=== PATIENT | male | born 1975 ===

== ENCOUNTER 2025-01-27 14:59 | Inpatient (IN) | payer BC, SELFPAY ==
[~2025-01-27 14:59] MED LIST: Iopamidol 370 76% 100 ML VIAL ONE
[2025-01-27 16:40] LABS: #Basophils 0.03 10x3/uL (0.0-0.2); #Eosinophils Less than 0.03 10x3/uL (0.0-0.7); #Monocytes 0.58 10x3/uL (0.11-0.59); #Neutrophils 10.60 10x3/uL (1.40-6.50); %Basophils 0.2 % (0.0-1.0); %Eosinophils 0.0 % (0.0-10.0); %Lymphocytes 9.1 % (21.0-51.0); %Monocytes 4.7 % (0.0-10.0); %Neutrophils 85.8 % (42.0-75.0); Hematocrit 42.0 % (42.0-52.0); Hemoglobin 15.4 g/dL (14.0-18.0); Mean Corpuscular Hemoglobin 33.2 pg (27.0-31.0); Mean Corpuscular Volume 90.5 fL (78.0-98.0); Platelet Count 379 10x3/uL (130-400); Red Blood Cell (RBC) Count 4.64 mill/uL (4.70-6.10); White Blood Cell (WBC) Count 12.37 10x3/uL (4.8-10.8)
[2025-01-27 17:00] LABS: ALT (SGPT) 43 U/L (Less than 45); AST (SGOT) 144 U/L (11-34); Albumin 3.8 g/dL (3.1-4.5); Alkaline Phosphatase 109 U/L (40-110); Anion Gap 19 mmol/L (10-20); BUN (Urea Nitrogen) 4 mg/dL (8.9-20.6); Bilirubin, Total 0.7 mg/dL (0.3-1.2); Calc. Creatinine Clearance 0 mL/min (70-130); Calcium 8.8 mg/dL (7.8-10.44); Carbon Dioxide 26 mmol/L (22-29); Chloride 97 mmol/L (98-107); Globulin 3.6 g/dL (2.4-3.5); Glucose 126 mg/dL (70-105); Lipase 6 U/L (8-78); Magnesium 1.7 mg/dL (1.6-2.6); Potassium 3.8 mmol/L (3.5-5.1); Sodium 138 mmol/L (136-145)
[2025-01-27 17:15] LABS: Troponin I 5.322 ng/mL (< 0.028)
[2025-01-27] MEDS ORDERED: Enoxaparin 100 MG (1 mL) SYRINGE ONE (18:36)
[2025-01-27] MEDS ORDERED: Nitroglycerin 2% Ointment 1 INCH/1 GM Packet ONE (19:07)
[2025-01-27] MEDS ORDERED: Ondansetron PF 4 MG/2 ML Vial IVP PRN (19:35)
[2025-01-27 19:40] LABS: Troponin I 10.334 ng/mL (< 0.028)
[2025-01-27] MEDS ORDERED: Lidocaine 1% (PF) 30 ML VIAL ONE (20:10)
[2025-01-27] MEDS ORDERED: Nitroglycerin 50 MG/250 ML BOT 250 ML ONE (20:10)
[2025-01-27] MEDS ORDERED: Heparin 10,000 UNITS/ 10 ML VIAL ONE (20:10)
[2025-01-27] MEDS ORDERED: Adenosine 6 mg (2 mL) VIAL ONE (20:54)
[2025-01-27] MEDS ORDERED: TICAGRELOR 90 MG TABLET ONE (20:59)
[2025-01-27] MEDS ORDERED: Ondansetron PF 4 MG/2 ML Vial ONE (21:00)
[2025-01-27] MEDS ORDERED: NOREPINEPHRINE 8 MG/250 ML-D5W 250 ML ONE (21:01)
[2025-01-27] MEDS ORDERED: Milk Of Magnesia 30 ML UDCUP PO PRN (21:40)
[2025-01-27] MEDS ORDERED: Acetaminophen/Codeine 30-300mg Tablet PO PRN (21:40)
[2025-01-27] MEDS ORDERED: Nitroglycerin 0.4 MG TAB (25 Tab Bottle) SL PRN (21:40)
[2025-01-27] MEDS ORDERED: Mag-Al 1200 mg/1200 mg/30 ML UDCUP PO PRN (21:40)
[2025-01-27] MEDS ORDERED: NOREPINEPHRINE 8 MG/250 ML-D5W 250 ML IVPB SCH (22:00)
[2025-01-27 22:25] VITALS: BMI 24.9
[2025-01-27 23:32] LABS: Acetaminophen Less than 10 mcg/mL (Less than 10); Salicylate Less than 8.0 mg/dL (Less than 8.0)
[2025-01-27] MEDS: Acetaminophen 325 MG TAB PO PRN (23:51)
[2025-01-27] MEDS: Pantoprazole 40 MG VIAL IVP SCH (23:56)
[2025-01-28 00:23] LABS: Troponin I 353.753 ng/mL (< 0.028)
[2025-01-28] MEDS ORDERED: Nitroglycerin 2% Ointment 1 INCH/1 GM Packet TOP SCH (03:00)
[2025-01-28 04:53] LABS: #Basophils 0.03 10x3/uL (0.0-0.2); #Eosinophils Less than 0.03 10x3/uL (0.0-0.7); #Monocytes 1.09 10x3/uL (0.11-0.59); #Neutrophils 9.16 10x3/uL (1.40-6.50); %Basophils 0.2 % (0.0-1.0); %Eosinophils 0.0 % (0.0-10.0); %Lymphocytes 15.9 % (21.0-51.0); %Monocytes 8.9 % (0.0-10.0); %Neutrophils 74.7 % (42.0-75.0); Hematocrit 38.3 % (42.0-52.0); Hemoglobin 13.7 g/dL (14.0-18.0); Mean Corpuscular Hemoglobin 33.6 pg (27.0-31.0); Mean Corpuscular Volume 93.9 fL (78.0-98.0); Platelet Count 279 10x3/uL (130-400); Red Blood Cell (RBC) Count 4.08 mill/uL (4.70-6.10); White Blood Cell (WBC) Count 12.27 10x3/uL (4.8-10.8)
[2025-01-28 05:23] LABS: ALT (SGPT) 101 U/L (Less than 45); AST (SGOT) 654 U/L (11-34); Albumin 3.1 g/dL (3.1-4.5); Alkaline Phosphatase 87 U/L (40-110); Anion Gap 16 mmol/L (10-20); BUN (Urea Nitrogen) 6 mg/dL (8.9-20.6); Bilirubin, Total 0.9 mg/dL (0.3-1.2); Calc. Creatinine Clearance 112 mL/min (70-130); Calcium 8.2 mg/dL (7.8-10.44); Carbon Dioxide 21 mmol/L (22-29); Cardiac Risk 6.0 (Less than 4.5); Chloride 103 mmol/L (98-107); Cholesterol 174 mg/dl (< 200 Desired); Globulin 3.0 g/dL (2.4-3.5); Glucose 103 mg/dL (70-105); HDL Cholesterol 29 mg/dL (>60 Neg Risk); LDL Cholesterol, Calculated 106 mg/dL; Potassium 3.6 mmol/L (3.5-5.1); Sodium 136 mmol/L (136-145); Triglycerides 195 mg/dL (Less than 150)
[2025-01-28 07:10] LABS: Troponin I 200.511 ng/mL (< 0.028)
[2025-01-28] MEDS: TICAGRELOR 90 MG TABLET PO SCH (09:01)
[2025-01-28] MEDS: Pantoprazole 40 MG VIAL IVP SCH (09:02)
[2025-01-28] MEDS: Aspirin Chewable 81 MG TAB PO SCH (09:02)
[2025-01-28 09:11] LABS: Critical Call Chem Troponin I RESULT DECREASING; Troponin I 141.537 ng/mL (< 0.028)
[2025-01-28 09:34] LABS: Magnesium 1.8 mg/dL (1.6-2.6)
[2025-01-28] MEDS: Acetaminophen/Codeine 30-300mg Tablet PO PRN (10:00)
[2025-01-29 04:57] LABS: #Basophils 0.03 10x3/uL (0.0-0.2); #Eosinophils Less than 0.03 10x3/uL (0.0-0.7); #Monocytes 1.24 10x3/uL (0.11-0.59); #Neutrophils 7.71 10x3/uL (1.40-6.50); %Basophils 0.3 % (0.0-1.0); %Eosinophils 0.1 % (0.0-10.0); %Lymphocytes 20.4 % (21.0-51.0); %Monocytes 10.9 % (0.0-10.0); %Neutrophils 67.9 % (42.0-75.0); Hematocrit 40.6 % (42.0-52.0); Hemoglobin 14.9 g/dL (14.0-18.0); Mean Corpuscular Hemoglobin 33.6 pg (27.0-31.0); Mean Corpuscular Volume 91.4 fL (78.0-98.0); Platelet Count 258 10x3/uL (130-400); Red Blood Cell (RBC) Count 4.44 mill/uL (4.70-6.10); White Blood Cell (WBC) Count 11.35 10x3/uL (4.8-10.8)
[2025-01-29 05:18] LABS: ALT (SGPT) 74 U/L (Less than 45); AST (SGOT) 224 U/L (11-34); Albumin 3.4 g/dL (3.1-4.5); Alkaline Phosphatase 86 U/L (40-110); Anion Gap 14 mmol/L (10-20); BUN (Urea Nitrogen) 4 mg/dL (8.9-20.6); Bilirubin, Total 0.7 mg/dL (0.3-1.2); Calc. Creatinine Clearance 0 mL/min (70-130); Calcium 8.5 mg/dL (7.8-10.44); Carbon Dioxide 28 mmol/L (22-29); Chloride 103 mmol/L (98-107); Globulin 3.2 g/dL (2.4-3.5); Glucose 105 mg/dL (70-105); Magnesium 2.1 mg/dL (1.6-2.6); Potassium 3.2 mmol/L (3.5-5.1); Sodium 142 mmol/L (136-145)
[2025-01-29] MEDS: Lisinopril 2.5 MG TAB PO SCH (18:05)
[2025-01-29] MEDS: clonazePAM 1 MG TAB PO PRN (18:06)
[2025-01-30 04:49] LABS: #Basophils 0.08 10x3/uL (0.0-0.2); #Eosinophils 0.06 10x3/uL (0.0-0.7); #Monocytes 1.03 10x3/uL (0.11-0.59); #Neutrophils 6.01 10x3/uL (1.40-6.50); %Basophils 0.8 % (0.0-1.0); %Eosinophils 0.6 % (0.0-10.0); %Lymphocytes 27.7 % (21.0-51.0); %Monocytes 10.3 % (0.0-10.0); %Neutrophils 60.2 % (42.0-75.0); Hematocrit 40.7 % (42.0-52.0); Hemoglobin 14.1 g/dL (14.0-18.0); Mean Corpuscular Hemoglobin 32.9 pg (27.0-31.0); Mean Corpuscular Volume 95.1 fL (78.0-98.0); Platelet Count 271 10x3/uL (130-400); Red Blood Cell (RBC) Count 4.28 mill/uL (4.70-6.10); White Blood Cell (WBC) Count 9.99 10x3/uL (4.8-10.8)
[2025-01-30 05:19] LABS: ALT (SGPT) 50 U/L (Less than 45); AST (SGOT) 99 U/L (11-34); Albumin 3.0 g/dL (3.1-4.5); Alkaline Phosphatase 80 U/L (40-110); Anion Gap 13 mmol/L (10-20); BUN (Urea Nitrogen) 4 mg/dL (8.9-20.6); Bilirubin, Total 0.6 mg/dL (0.3-1.2); Calc. Creatinine Clearance 94 mL/min (70-130); Calcium 8.0 mg/dL (7.8-10.44); Carbon Dioxide 27 mmol/L (22-29); Chloride 105 mmol/L (98-107); Globulin 3.0 g/dL (2.4-3.5); Glucose 92 mg/dL (70-105); Potassium 4.2 mmol/L (3.5-5.1); Sodium 141 mmol/L (136-145)
[2025-01-30] MEDS: Pantoprazole 40 MG DR.TAB PO SCH (09:02)
[2025-01-30] MEDS: Lisinopril 2.5 MG TAB PO SCH (09:02)
[2025-01-30 10:09] VITALS: BP 134/82; TEMP 98.4
== END 2025-01-30 11:29 | disposition home or self-care (01) | DRG 321 ==
LOC: ERS 14:59 → SDC/OP 20:50 → CCU 22:02 → 2NO 01-28 14:18
PROVIDERS: ADMIT Family Medicine; ATTEND Emergency Medicine
PROC: 4A023N7 Measurement of Cardiac Sampling and Pressure, Left Heart, Percutaneous Approach (ICD-10-PCS; principal; 2025-01-27)
PROC: 027037Z Dilation of Coronary Artery, One Artery with Four or More Drug-eluting Intraluminal Devices, Percutaneous Approach (ICD-10-PCS; 2025-01-27)
PROC: B2151ZZ Fluoroscopy of Left Heart using Low Osmolar Contrast (ICD-10-PCS; 2025-01-27)
PROC: B2111ZZ Fluoroscopy of Multiple Coronary Arteries using Low Osmolar Contrast (ICD-10-PCS; 2025-01-27)
PROC: 3E033XZ Introduction of Vasopressor into Peripheral Vein, Percutaneous Approach (ICD-10-PCS; 2025-01-27)
DX: I21.4 Non-ST elevation (NSTEMI) myocardial infarction (principal); R57.0 Cardiogenic shock; I25.10 Atherosclerotic heart disease of native coronary artery without angina pectoris; Z79.82 Long term (current) use of aspirin; Z79.899 Other long term (current) drug therapy; I10 Essential (primary) hypertension; Z98.890 Other specified postprocedural states
CPT/HCPCS: 36415; 71045; 71275; 74174; 80053; 80061; 80307; 83036; 83690; 83735; 83880; 84484; 85025; 85347; 92941; 93005; 93306; 93458; 93798; 96372; 96374; 96376; 99152; 99153; C1725; C1760; C1769; C1874; C1887; C9606; J0153; J1644; J1650; J2250; J2270; J2405; J2470; J3010; J3246; Q9967